=== PATIENT | male | born 1980 | race Caucasian/White ===

== ENCOUNTER → 2019-12-15 08:16 | Outpatient (BNVA) | payer OTHER, SELFPAY | PROVIDERS: PCP Nurse Practitioner Family; Referring Provider Nurse Practitioner Family; Visit Provider Nurse Practitioner Family | DX: Z76.89 Persons encountering health services in other specified circumstances (principal) ==

== ENCOUNTER → 2020-02-23 08:25 | Outpatient (BNVA) | payer OTHER, SELFPAY | PROVIDERS: PCP Nurse Practitioner Family; Visit Provider Nurse Practitioner Family | DX: Z76.89 Persons encountering health services in other specified circumstances (principal) ==

== ENCOUNTER → 2020-05-17 08:33 | Outpatient (BNVA) | payer OTHER, SELFPAY | PROVIDERS: PCP Nurse Practitioner Family; Visit Provider Nurse Practitioner Family ==

== ENCOUNTER 2020-11-30 12:18 | Outpatient (REF) | payer OTHER, SELFPAY ==
[2020-11-30 14:03] LABS: Appearance Urine HAZY; Color Urine YELLOW; Glucose Urine UA NEG (NEG); Leukocyte Esterase Urine NEG (NEG); Nitrite Urine NEG (NEG); Specific Gravity - Urine >= 1.030 (1.005-1.025); Urine Blood NEG (NEG); Urine Ketones NEG (NEG); Urine Protein NEG (NEG-TRACE)
[2020-11-30 14:32] LABS: Alanine Aminotransferase 32 U/L (0-40); Albumin Level 4.9 g/dL (3.5-5.0); Alkaline Phosphatase 78 U/L (39-117); Anion Gap 14 (12-20); Aspartate Amino Transferase 21 U/L (5-37); Bilirubin Total 0.5 mg/dL (0.0-1.0); Blood Urea Nitrogen 16 mg/dL (9-16); Calcium 10.3 mg/dL (8.4-10.2); Carbon Dioxide 26 mmol/L (22-29); Chloride 105 mmol/L (96-108); Cholesterol 222 mg/dL; Estimated Glomerular Filt Rate > 60; Glucose Fasting 102 mg/dL (60-99); HDL Cholesterol 51 mg/dL; LDL Cholesterol Calculated 112 mg/dl; Potassium 4.7 mmol/L (3.3-5.1); Sodium 140 mmol/L (135-145); Total Protein 7.9 g/dL (6.5-8.0); Triglycerides 296 mg/dL
[2020-11-30 14:45] LABS: TSH reflex Free T4 1.96 uIU/mL (0.32-4.0)
== END 2020-11-30 12:19 | disposition home or self-care (01) ==
LOC: HO.HMGCLDS 12:18
PROVIDERS: PCP Nurse Practitioner Family; Visit Provider Nurse Practitioner Family
DX: Z00.00 Encounter for general adult medical examination without abnormal findings (principal)
CPT/HCPCS: 36415; 80053; 80061; 81003; 84443

== ENCOUNTER 2021-12-04 11:54 | Outpatient (REF) | payer OTHER, SELFPAY ==
[2021-12-04 14:05] LABS: Appearance Urine Clear; Color Urine Yellow; Glucose Urine UA Negative (Negative); Leukocyte Esterase Urine Negative (Negative); Nitrite Urine Negative (Negative); Urine Blood Negative (Negative); Urine Ketones Negative (Negative); Urine Protein Negative (Neg-Trace)
[2021-12-04 14:07] LABS: MANUAL DIFF FLAG NO
[2021-12-04 14:17] LABS: Basophils Percent Auto 0.4 % (0-2); Eosinophils Absolute Auto 0.2 X10*3/uL (0.0-0.4); Eosinophils Percent Auto 3.3 % (0-4); Hematocrit 43.1 % (42.0-52.0); Hemoglobin 14.1 g/dl (14.0-18.0); Imm Gran Abs Auto 0.01 X10*3/uL (0.00-0.03); Imm Gran Pct Auto 0.2 % (0.0-0.4); Lymphocytes Absolute Auto 1.6 X10*3/uL (1.2-4.9); Mean Corpuscular HGB Conc 32.7 g/dl (31.0-36.0); Mean Corpuscular Hemoglobin 28.3 pg (27.0-33.0); Mean Corpuscular Volume 86.5 fL (80.0-98.0); Mean Platelet Volume 10.7 fL (9.4-12.4); Monocytes Absolute Auto 0.4 X10*3/uL (0.1-1.2); Neutrophils Absolute Auto 3.2 x10*3/uL (2.0-8.3); Neutrophils Percent Auto 59.1 % (45-73); Platelet Count 267 X10*3/uL (160-400); Red Blood Count 4.98 X10*6/uL (4.60-5.80); Red Cell Distribution Width 12.6 % (11.0-16.0); White Blood Count 5.5 X10*3/uL (4.8-10.8)
[2021-12-04 14:49] LABS: Alanine Aminotransferase 29 U/L (0-40); Albumin Level 4.8 g/dL (3.5-5.0); Alkaline Phosphatase 73 U/L (39-117); Anion Gap 16 (12-20); Aspartate Amino Transferase 19 U/L (5-37); Bilirubin Total 0.5 mg/dL (0.0-1.0); Blood Urea Nitrogen 19 mg/dL (9-16); Carbon Dioxide 25 mmol/L (22-29); Chloride 106 mmol/L (96-108); Cholesterol 174 mg/dL; Estimated Glomerular Filt Rate > 60; Glucose Fasting 99 mg/dL (60-99); HDL Cholesterol 39 mg/dL; LDL Cholesterol Calculated 90 mg/dl; Potassium 4.5 mmol/L (3.3-5.1); Sodium 142 mmol/L (135-145); Total Protein 7.4 g/dL (6.5-8.0); Triglycerides 228 mg/dL
[2021-12-04 14:57] LABS: TSH reflex Free T4 1.18 uIU/mL (0.32-4.0)
== END 2021-12-04 11:55 | disposition home or self-care (01) ==
LOC: HO.HMGCLDS 11:54
PROVIDERS: PCP Nurse Practitioner Family; Visit Provider Nurse Practitioner Family
DX: Z00.00 Encounter for general adult medical examination without abnormal findings (principal); Z13.220 Encounter for screening for lipoid disorders; Z13.29 Encounter for screening for other suspected endocrine disorder
CPT/HCPCS: 36415; 80053; 80061; 81003; 84443; 85025

== ENCOUNTER 2022-10-09 09:11 | Outpatient (AMB) | payer OTHER, SELFPAY ==
--- NOTE | 2022-10-09 09:22 | MHC.OFFWIV ---
Intake Vital Signs 10/09/22 09:25 BP 130/90 H Blood Pressure Location Rt brachial Position Sitting Pulse 95 Pulse Source Pulse Oximeter Pulse Oximetry (%) 97 Oxygen Delivery Method Room Air Intake Visit Reasons: EP chemical burn on left arm (lobby) Intake Note: Patient here because he got some draino on his skin this morning and developed a rash so he took a shower and the redness went away but he still has some tender spots where it was and he states it burned some his arm hair off. Patient Tobacco Use Status: Never used Tobacco Allergies No Known Allergies Allergy (Verified 10/09/22 09:25) Do you need a note to return to daycare/school/sports/work: Yes HPI HPI Comments History of Present Illness Details 42-year-old male presents for chemical burn to his left arm. States that he put some cleaner and presser down a drain, when he went to snake it some of the water splashed back onto his arm causing a reddened area that has now resolved. [facility] Social History Household Members: Spouse Housing: House Patient Tobacco Use Status: Never used Tobacco e-Cigarette/Vaping Use: Never Used service: No Current occupational status: employed Current occupation: [employer] Current occupational exposures/hazards: No Cognitive needs: No Hearing needs: No Vision needs: No Review of Systems Const Details: Constitutional: No Fever, No Chills Cardiovascular: No Chest Pain, No SOB Respiratory: No Cough, No Dyspnea Gastrointestinal: No Nausea, No Vomiting, No Diarrhea, No abdominal Pain Genitourinary: No Dysuria, No Hematuria Musculoskeletal: No joint pain, No Myalgias, No Joint Swelling Skin: Chemical burn to left arm, No Skin lacerations, No rash Neuro: No Weakness, No Numbness, No Paresthesias, No Dizziness, No Headache All systems reviewed & are unremarkable except as noted in HPI and below Physical Exam Vital Signs: Last Vital Signs Pulse 95 10/09/22 09:25 BP 130/90 H 10/09/22 09:25 Pulse Ox 97 10/09/22 09:25 Oxygen Delivery Method Room Air 10/09/22 09:25 Appearance: Alert. Oriented X3. No acute distress. Eyes: Pupils equal, round and reactive to light. Neck: Normal inspection. Neck supple. CVS: Normal heart rate and rhythm. Pulses normal. Respiratory: No respiratory distress. Breath sounds normal. Skin: Skin warm and dry. Normal skin color. Normal skin turgor. No erythema or open areas to the left arm. Extremities: No lower extremity edema. Gait well balanced well coordinated. Neuro: No motor deficit. No sensory deficit. Cranial nerves 2-12 intact. Assessment & Plan Assessment & Plan (1) Chemical burn: Code(s): T30.4 - Corrosion of unspecified body region, unspecified degree Plan: 42-year-old male presents for a chemical burn to the left forearm. He was snaking a drain that had draino in it, the water splashed back on him, and got onto his left arm. He did have an area of redness to the site, and the hair on his arm dissolved. There there are no open areas to the burn site, and the redness had dissipated after a shower. There is no indication of reaction at those sites with the exception of the missing hair. Patient has full range of motion and brisk capillary refill. Does not report any other burn sites. I do not feel that this burn requires any topical ointment, I feel that this patient should flush his arm a few more times today and leave it as is. If patient were to develop open areas, I suggest he return for evaluation. Patient verbalized understanding of and agrees to plan of care discharge home. Verbalized understanding of signs symptoms indicating need for emergent intervention. Patient Instructions: You were evaluated for chemical burn to her left arm. Your skin is not open. Please do not apply any ointment or topical lotions to the area. Continue to wash the arm with cool water, 15 minutes of flushing, a few more times today. Follow-up with primary care provider as needed. Return to the emergency department for any new, concerning, worsening symptoms. Coding Level of Care Code Est Pt Level 3 (95170) Diagnoses Chemical burn T30.4
[2022-10-09 09:25] VITALS: BP 130/90; PULSE 95; O2SAT 97
== END 2022-10-09 10:32 | disposition home or self-care (01) ==
PROVIDERS: PCP Nurse Practitioner Family; Visit Provider Nurse Practitioner Family
DX: T30.4 Corrosion of unspecified body region, unspecified degree (principal)
CPT/HCPCS: 99213

== ENCOUNTER 2022-12-05 10:21 | Outpatient (AMB) | payer OTHER, SELFPAY ==
[2022-12-05 10:27] VITALS: BP 110/74; PULSE 69; O2SAT 98; BMI 30.8
--- NOTE | 2022-12-05 10:27 | A.OFFPC_ITS ---
Vital Signs 12/05/22 10:27 Height 6 ft 0.5 in Weight 230 lb 2 oz BMI 30.8 BP 110/74 Blood Pressure Location Rt brachial Position Sitting Pulse 69 Pulse Source Pulse Oximeter Pulse Oximetry (%) 98 Oxygen Delivery Method Room Air Intake Visit Reasons: Annual PE Allergies No Known Allergies Allergy (Verified 12/05/22 10:29) Medication List - Last Reconciled 12/05/22 by JACKIE Sloan CPAP 5-20 rosuvastatin 30 mg (1.5 x 20 mg) PO DAILY 90 days Tobacco use date assessed: 12/05/22 Dental Screening Dental Screen Date: 12/05/22 Did you have a dental visit in the last 12 months?: Yes Did you have a dental problem in the last 6 months where you did not have access to dental care?: No Was dental information given to patient?: Patient has dentist HPI Annual PE HPI Details here for a PE. Offers no questions or concerns. [facility] Social History Household Members: Spouse Housing: House Patient Tobacco Use Status: Never used Tobacco e-Cigarette/Vaping Use: Never Used service: No Current occupational status: employed Current occupation: [employer] Current occupational exposures/hazards: No Cognitive needs: No Hearing needs: No Vision needs: No Questionnaire Thrive Questionnaire Date Thrive assessed: 12/04/21 LINDSEY-7 AMB Questionnaire LINDSEY-7 Date LINDSEY - 7 assessed: 12/04/21 Source: Developed by Drs. Maxwell Groves, Ramya Lemons, Norberto Hidalgo and colleagues, with an educational lesvia from [email or web address]. Review of Systems Const Denies chills and Denies fever(s) Eyes Denies blurry vision ENT Denies vertigo, Denies dizziness and Denies sore throat Card Denies chest pain at rest, Denies chest pain with activity, Denies diaphoresis, Denies dyspnea and Denies dyspnea on exertion Resp Denies cough, Denies dyspnea, Denies dyspnea on exertion and Denies wheezing GI Denies abdominal pain, Denies melena, Denies hematochezia, Denies constipation, Denies diarrhea and Denies loose stools Denies hematuria Musc Denies numbness and Denies tingling Skin/Breast Denies lesions Neuro Denies vertigo, Denies dizziness, Denies numbness and Denies tingling Psych Denies anxiety, Denies depression, Denies homicidal ideation, Denies suicidal ideation and Denies other (substance abuse) Aller/Immun Denies wheezing Physical exam (Primary Care) Vital Signs: Last Vital Signs Pulse 69 12/05/22 10:27 BP 110/74 12/05/22 10:27 Pulse Ox 98 12/05/22 10:27 Oxygen Delivery Method Room Air 12/05/22 10:27 BMI result Body Mass Index 30.8 Tobacco/Smoking Status: Tobacco use Status Tobacco use date assessed 12/05/22 12/05/22 10:32 Patient Tobacco Use Status Never used Tobacco 12/05/22 10:32 e-Cigarette/Vaping Use Never Used 12/05/22 10:32 Thrive Assessment: Date of Thrive Assessment Date Thrive assessed 12/04/21 12/05/22 10:32 Const General: cooperative Nutritional Appearance: well nourished Orientation/consciousness: patient oriented x3 HENMT Head: Yes normal to inspection, Yes normocephalic and Yes atraumatic Ears: TM normal on the right and TM normal on the left Eyes General: appearance normal, both eyes and all related structures Alignment and Position: alignment normal and position normal Neck Neck: Yes normal visual inspection and Yes no lymphadenopathy Resp Effort & Inspection: normal respiratory effort Auscultation: clear to auscultation bilaterally Cardio Rate: regular rate Rhythm: regular rhythm Heart sounds: S1 normal heart sound present, S2 normal heart sound present and no murmurs GI Palpation (GI): Soft to palpation and nontender Auscultation: normal bowel sounds Male General Exam: Yes normal external exam Penis: normal penis Scrotum: scrotum normal, testes descended bilaterally and no inguinal hernias Testes: no testicular mass Skin Rashes: no rashes Neuro General: patient oriented x3, moves all extremities, no focal motor deficits and deep tendon reflexes 2+ bilaterally Romberg Test: Negative Extrem Right lower extremity: no edema Left lower extremity: no edema Psych Affect: normal affect Attitude: cooperative Thought process: Normal thought process present Assessment and Plan Assessment & Plan (1) Physical exam: Code(s): Z00.00 - Encounter for general adult medical examination without abnormal findings Orders: Orders Complete Blood Count Auto Diff Today Z00.00 - Encounter for general adult medical examination without abnormal findings TSH reflex Free T4 Today Z00.00 - Encounter for general adult medical examination without abnormal findings UA CC w/rflx Micro + Cult Today Z00.00 - Encounter for general adult medical examination without abnormal findings Comprehensive [place]. Panel Fast Today Z00.00 - Encounter for general adult medical examination without abnormal findings Lipid Panel Today Z00.00 - Encounter for general adult medical examination without abnormal findings Coding Level of Care Code Est Pt Prev Care 40-64y(65134) Diagnoses Physical exam Z00.00
== END 2022-12-05 11:02 | disposition home or self-care (01) ==
PROVIDERS: Visit Provider Nurse Practitioner Family
DX: Z00.00 Encounter for general adult medical examination without abnormal findings (principal)
CPT/HCPCS: 99396

== ENCOUNTER 2022-12-05 11:05 | Outpatient (REF) | payer OTHER, SELFPAY ==
[2022-12-05 13:13] LABS: MANUAL DIFF FLAG NO
[2022-12-05 13:30] LABS: Basophils Percent Auto 0.2 % (0-2); Eosinophils Absolute Auto 0.1 X10*3/uL (0.0-0.4); Hematocrit 45.9 % (42.0-52.0); Imm Gran Abs Auto 0.01 X10*3/uL (0.00-0.03); Imm Gran Pct Auto 0.2 % (0.0-0.4); Lymphocytes Absolute Auto 1.8 X10*3/uL (1.2-4.9); Lymphocytes Percent Auto 31.6 % (20-40); Mean Corpuscular HGB Conc 32.7 g/dl (31.0-36.0); Mean Corpuscular Hemoglobin 28.4 pg (27.0-33.0); Mean Corpuscular Volume 86.9 fL (80.0-98.0); Mean Platelet Volume 10.9 fL (9.4-12.4); Monocytes Absolute Auto 0.3 X10*3/uL (0.1-1.2); Neutrophils Absolute Auto 3.3 x10*3/uL (2.0-8.3); Platelet Count 263 X10*3/uL (160-400); Red Blood Count 5.28 X10*6/uL (4.60-5.80); Red Cell Distribution Width 12.5 % (11.0-16.0); White Blood Count 5.5 X10*3/uL (4.8-10.8)
[2022-12-05 13:55] LABS: Appearance Urine Turbid; Color Urine Dark Yellow; Glucose Urine UA Negative (Negative); Leukocyte Esterase Urine Negative (Negative); Nitrite Urine Negative (Negative); PH 5.5 (5.0-9.0); Specific Gravity - Urine >= 1.030 (1.005-1.025); Urine Blood Negative (Negative); Urine Ketones Negative (Negative); Urine Protein Negative (Neg-Trace)
[2022-12-05 14:11] LABS: Alanine Aminotransferase 30 U/L (0-40); Albumin Level 4.9 g/dL (3.5-5.0); Alkaline Phosphatase 72 U/L (39-117); Anion Gap 15 (12-20); Aspartate Amino Transferase 22 U/L (5-37); Bilirubin Total 0.6 mg/dL (0.0-1.0); Blood Urea Nitrogen 20 mg/dL (9-16); Carbon Dioxide 23 mmol/L (22-29); Chloride 106 mmol/L (96-108); Cholesterol 222 mg/dL (<200); Estimated Glomerular Filt Rate > 60; Glucose Fasting 106 mg/dL (60-99); HDL Cholesterol 48 mg/dL (>40); LDL Cholesterol Calculated 126 mg/dL (<100); Potassium 4.3 mmol/L (3.3-5.1); Sodium 140 mmol/L (135-145); TSH reflex Free T4 1.68 uIU/mL (0.32-4.0); Triglycerides 244 mg/dL (<150)
== END 2022-12-05 11:06 | disposition home or self-care (01) ==
LOC: HO.CHCLDS 11:05
PROVIDERS: Visit Provider Nurse Practitioner Family
DX: Z00.00 Encounter for general adult medical examination without abnormal findings (principal); E78.5 Hyperlipidemia, unspecified; Z13.29 Encounter for screening for other suspected endocrine disorder; Z13.0 Encounter for screening for diseases of the blood and blood-forming organs and certain disorders involving the immune mechanism
CPT/HCPCS: 36415; 80053; 80061; 81003; 84443; 85025

== ENCOUNTER 2023-12-09 08:52 | Outpatient (AMB) | payer OTHER, SELFPAY ==
--- NOTE | 2023-12-09 08:53 | MHC.PC.OV ---
Vital Signs 12/09/23 08:55 Height 6 ft 0.5 in Weight 232 lb 4 oz BMI 31.1 BP 112/80 Blood Pressure Location Lt brachial Position Sitting Pulse 87 Pulse Source Pulse Oximeter Pulse Oximetry (%) 95 Oxygen Delivery Method Room Air Intake Visit Reasons: PE Intake Note: pt is here for annual exam [employer] Required: No Accompanied by: Self / Same As Patient Allergies No Known Allergies Allergy (Verified 12/09/23 08:54) Medication List - Last Reconciled 12/09/23 by JACKIE Sloan CPAP 5-20 rosuvastatin 40 mg PO DAILY 90 days Tobacco use date assessed: 12/09/23 Dental Screening Dental Screen Date: 12/09/23 Did you have a dental visit in the last 12 months?: Yes Did you have a dental problem in the last 6 months where you did not have access to dental care?: No Was dental information given to patient?: Patient has dentist HPI PE HPI Details Pt is here for a PE. Will order labs. Pt reports right hand and wrist pain after punching a wall and hitting a stud 1.5 weeks ago. He does have some swelling to the area (mostly dorsal right hand, mcp joints). Will order XRs. Pt reports he was frustrated at the time, no longer, denies any si or hi PFSH Social History Household Members: Spouse Housing: House Patient Tobacco Use Status: Never used Tobacco e-Cigarette/Vaping Use: Never Used service: No Current occupational status: employed Current occupation: [employer] Current occupational exposures/hazards: No Cognitive needs: No Hearing needs: No Vision needs: No Questionnaire PHQ-9 Over the last 2 weeks, how often have you been bothered by any of the following problems? 1. Little interest or pleasure in doing things: not at all 2. Feeling down, depressed, or hopeless: not at all 3. Trouble falling or staying asleep, or sleeping too much: not at all 4. Feeling tired or having little energy: not at all 5. Poor appetite or overeating: not at all 6. Feeling bad about yourself - or that you are a failure or have let yourself or your family down: not at all 7. Trouble concentrating on things, such as reading the newspaper or watching television: not at all 8. Moving or speaking so slowly that other people could have noticed. Or the opposite - being so fidgety or restless that you have been moving around a lot more than usual: not at all 9. Thoughts that you would be better off or of hurting yourself in some way: not at all Total score: 0 Depression Screening Interpretation: Negative Depression Screening Done: Yes 19081 - PHQ-9 Billing: Yes Source: Developed by Drs. Maxwell Groves, Ramya Lemons, Norberto Hidalgo and colleagues, with an educational lesvia from [employer] Thrive Questionnaire Date Thrive assessed: 12/09/23 I am a: Patient What is your living situation today?: I have a steady place to live Within the past 12 months, did the food you bought not last and you didn't have the money to get more?: Never true Within the past 12 months, did you worry whether your food would run out before you got money to buy more?: Never true Do you have trouble paying for medicines?: No Do you have trouble getting transportation to medical appointments?: No Do you have trouble paying your heating and electricity bill?: No Do you have trouble taking care of your child, family member or friend?: No Do you have trouble with day-to-day activities such as bathing, preparing meals, shopping, managing finances, etc.?: No Are you interested in more education?: No Please select the resources that you would like help with: None Currently or been in a relationship where the following occur: No concerns reported THRIVE Score: 0 AUDIT C Alcohol Use Questionnaire (AUDIT-C) 1. How often do you have a drink containing alcohol?: 2-3 times a week 2. How many drinks containing alcohol do you have on a typical day when you are drinking?: 1 or 2 3. How often do you have six or more drinks on one occasion?: Less than monthly Total Score: 4 Score Reviewed/Action Taken: Yes LINDSEY-7 AMB Questionnaire LINDSEY-7 Date LINDSEY - 7 assessed: 12/09/23 Feeling nervous, anxious, or on edge: 0 = Not at all Not being able to stop or control worryin = Not at all Worrying too much about different things: 0 = Not at all Trouble relaxin = Not at all Being so restless that it is hard to sit still: 0 = Not at all Becoming easily annoyed or irritable: 0 = Not at all Feeling afraid as if something awful might happen: 0 = Not at all Total LINDSEY-7 score (0-4 normal; 5-9 mild; 10-14 moderate; 15-21 severe): 0 Source: Developed by Drs. Maxwell Groves, Ramya Lemons, Norberto Hidalgo and colleagues, with an educational lesvia from [employer] LINDSEY-7 Assessment Billing LINDSEY-7 Assessment Tool: LINDSEY-7 Assessment 45313 Review of Systems Const Denies chills and Denies fever(s) Eyes Denies blurry vision ENT Denies vertigo, Denies dizziness and Denies sore throat Card Denies chest pain at rest, Denies chest pain with activity, Denies diaphoresis, Denies dyspnea and Denies dyspnea on exertion Resp Denies cough, Denies dyspnea, Denies dyspnea on exertion and Denies wheezing GI Denies abdominal pain, Denies melena, Denies hematochezia, Denies constipation, Denies diarrhea and Denies loose stools Denies hematuria Musc Denies numbness and Denies tingling Skin/Breast Denies lesions Neuro Denies vertigo, Denies dizziness, Denies numbness and Denies tingling Psych Denies anxiety, Denies depression, Denies homicidal ideation, Denies suicidal ideation and Denies other (substance abuse) Aller/Immun Denies wheezing Physical exam (Primary Care) Vital Signs: Last Vital Signs Pulse 87 12/09/23 08:55 BP 112/80 12/09/23 08:55 Pulse Ox 95 12/09/23 08:55 Oxygen Delivery Method Room Air 12/09/23 08:55 BMI result Body Mass Index 31.1 Tobacco/Smoking Status: Tobacco use Status Tobacco use date assessed 12/09/23 12/09/23 08:55 Patient Tobacco Use Status Never used Tobacco 12/09/23 08:53 e-Cigarette/Vaping Use Never Used 12/09/23 08:53 PHQ-9: PHQ-9 Score PHQ-9: Total score 0 12/09/23 09:11 Depression Screening Interpretation: Negative Thrive Assessment: Date of Thrive Assessment Date Thrive assessed 12/09/23 12/09/23 08:55 Currently or been in a relationship where the following occur: No concerns reported Const General: cooperative Nutritional Appearance: well nourished Orientation/consciousness: patient oriented x3 HENMT Head: Yes normal to inspection, Yes normocephalic and Yes atraumatic Ears: TM's normal bilaterally Eyes General: appearance normal, both eyes and all related structures Alignment and Position: alignment normal and position normal Neck Neck: Yes normal visual inspection, Yes no lymphadenopathy and Yes supple Resp Effort & Inspection: normal respiratory effort Auscultation: clear to auscultation bilaterally Cardio Rate: regular rate Rhythm: regular rhythm Heart sounds: S1 normal heart sound present, S2 normal heart sound present and no murmurs GI Palpation (GI): Soft to palpation and nontender Auscultation: normal bowel sounds Male General Exam: Yes normal external exam Penis: normal penis Scrotum: scrotum normal, testes descended bilaterally and no inguinal hernias Testes: no testicular mass Skin Rashes: no rashes Neuro General: patient oriented x3, moves all extremities, no focal motor deficits and deep tendon reflexes 2+ bilaterally Romberg Test: Negative Extrem Other: swelling to dorsal aspect of right hand, abrasion around 2nd and 3rd MCP joints, able to make a complete fist Psych Appearance: grossly normal Mental Status: mental status grossly normal Speech and movement: Normal speech and movement present Affect: normal affect Attitude: cooperative Thought process: Normal thought process present Thought content: Normal thought content present Insight: Good insight present (Psych) Judgement: Good judgement present (Psych) Coding Level of Care Code Est Pt Prev Care 40-64y(15595) Diagnoses Physical exam Z00.00 Right wrist injury S69.91XA Right hand pain M79.641 Additional Codes LINDSEY-7 Assessment Billing - LINDSEY-7 Assessment Tool: LINDSEY-7 Assessment 76731 ([id number]) Assessment & Plan Assessment & Plan (1) Physical exam: Code(s): Z00.00 - Encounter for general adult medical examination without abnormal findings Category: Medical (2) Right wrist injury: Code(s): S69.91XA - Unspecified injury of right wrist, hand and finger(s), initial encounter Category: Medical Plan: XR wrist (3) Right hand pain: Code(s): M79.641 - Pain in right hand Category: Medical Plan: XR hand ordered Plan The patient agreed to the use of a medical planner for this encounter. Scribed for [facility] by Neela Perdue medical planner, on 12/09/2023 at 09:10 EST. Orders: Orders XR hand RT 2V Today M79.641 - Pain in right hand Comprehensive [place]. Panel Fast Today M79.641 - Pain in right hand, Z00.00 - Encounter for general adult medical examination without abnormal findings Complete Blood Count Auto Diff Today M79.641 - Pain in right hand, Z00.00 - Encounter for general adult medical examination without abnormal findings TSH reflex Free T4 Today M79.641 - Pain in right hand, Z00.00 - Encounter for general adult medical examination without abnormal findings UA CC w/rflx Micro + Cult Today M79.641 - Pain in right hand, Z00.00 - Encounter for general adult medical examination without abnormal findings Lipid Panel Today M79.641 - Pain in right hand, Z00.00 - Encounter for general adult medical examination without abnormal findings XR wrist RT 2V Today S69.91XA - Unspecified injury of right wrist, hand and finger(s), initial encounter
[2023-12-09 08:55] VITALS: BP 112/80; PULSE 87; O2SAT 95; BMI 31.1
== END 2023-12-09 09:20 | disposition home or self-care (01) ==
PROVIDERS: PCP Nurse Practitioner Family; Visit Provider Nurse Practitioner Family
DX: Z00.00 Encounter for general adult medical examination without abnormal findings (principal); S69.91XA Unspecified injury of right wrist, hand and finger(s), initial encounter; M79.641 Pain in right hand

== ENCOUNTER → 2023-12-09 08:52 | Outpatient (BNVA) | payer OTHER, SELFPAY | PROVIDERS: PCP Nurse Practitioner Family; Visit Provider Nurse Practitioner Family | DX: Z00.01 Encounter for general adult medical examination with abnormal findings (principal); S69.91XA Unspecified injury of right wrist, hand and finger(s), initial encounter; M79.641 Pain in right hand; W22.09XA Striking against other stationary object, initial encounter; Y93.9 Activity, unspecified; Y92.9 Unspecified place or not applicable; Y99.9 Unspecified external cause status | CPT/HCPCS: 96127 ==

== ENCOUNTER 2023-12-09 09:20 | Outpatient (REF) | payer OTHER, SELFPAY ==
--- NOTE | ~2023-12-09 | XR_ITS ---
EXAMINATION: XR HAND/WRIST, RIGHT CLINICAL INFORMATION: Pain in right hand. COMPARISON: None available. TECHNIQUE: PA, lateral, and oblique views of the right hand and wrist. FINDINGS: The bone mineralization is normal. Joint spaces are preserved. There is mild focal irregularity along the ulnar aspect of the base of the fifth metacarpal, partially obscured by overlying bony structures, possibly representing prior trauma. XR/XR hand wrist RT IMPRESSION: Mild focal irregularity along the ulnar aspect of the base of the fifth metacarpal, partially obscured by overlying bony structures, possibly representing prior trauma. Correlation with clinical exam recommended. This study was presented today, December 09, 2023, for interpretation. Stat results provided at this time as requested by referring provider. Electronically signed by: Toyin Chris MD 12/09/2023 10:34 AM EDT
[2023-12-09 10:04] LABS: MANUAL DIFF FLAG NO
[2023-12-09 10:10] LABS: Basophils Percent Auto 0.4 % (0-2); Eosinophils Absolute Auto 0.1 X10*3/uL (0.0-0.4); Eosinophils Percent Auto 2.1 % (0-4); Hematocrit 42.9 % (42.0-52.0); Hemoglobin 14.5 g/dl (14.0-18.0); Imm Gran Abs Auto 0.01 X10*3/uL (0.00-0.03); Imm Gran Pct Auto 0.2 % (0.0-0.4); Lymphocytes Absolute Auto 1.5 X10*3/uL (1.2-4.9); Lymphocytes Percent Auto 27.8 % (20-40); Mean Corpuscular HGB Conc 33.8 g/dl (31.0-36.0); Mean Corpuscular Hemoglobin 28.8 pg (27.0-33.0); Mean Corpuscular Volume 85.1 fL (80.0-98.0); Mean Platelet Volume 10.6 fL (9.4-12.4); Monocytes Absolute Auto 0.3 X10*3/uL (0.1-1.2); Monocytes Percent Auto 4.9 % (2-11); Neutrophils Absolute Auto 3.4 x10*3/uL (2.0-8.3); Neutrophils Percent Auto 64.6 % (45-73); Platelet Count 232 X10*3/uL (160-400); Red Blood Count 5.04 X10*6/uL (4.60-5.80); Red Cell Distribution Width 12.7 % (11.0-16.0); White Blood Count 5.3 X10*3/uL (4.8-10.8)
[2023-12-09 10:28] LABS: Appearance Urine Clear; Color Urine Yellow; Glucose Urine UA Negative (Negative); Leukocyte Esterase Urine Trace (Negative); Nitrite Urine Negative (Negative); PH 5.5 (5.0-9.0); Specific Gravity - Urine 1.025 (1.005-1.025); UMIC TRIGGER UACC YES; Urine Blood Negative (Negative); Urine Ketones Negative (Negative); Urine Protein Negative (Neg-Trace)
[2023-12-09 10:37] LABS: Bacteria Urine None Seen (None Seen); Hyaline Casts Urine 0-2 /LPF (0-2); RBC Urine 0-2 /HPF (0-2); Squamous Epithelial Cell Urine 0-2 /HPF (0-2); WBC Urine 0-5 /HPF (0-5)
[2023-12-09 10:50] LABS: Alanine Aminotransferase 29 U/L (0-40); Albumin Level 4.7 g/dL (3.5-5.0); Alkaline Phosphatase 62 U/L (39-117); Anion Gap 13 (12-20); Aspartate Amino Transferase 22 U/L (5-37); Bilirubin Total 0.8 mg/dL (0.0-1.0); Blood Urea Nitrogen 22 mg/dL (9-16); Calcium 10.3 mg/dL (8.4-10.2); Carbon Dioxide 24 mmol/L (22-29); Chloride 108 mmol/L (96-108); Cholesterol 156 mg/dL (<200); Estimated Glomerular Filt Rate > 60; Glucose Fasting 113 mg/dL (60-99); HDL Cholesterol 42 mg/dL (>40); LDL Cholesterol Calculated 70 mg/dL (<100); Potassium 4.1 mmol/L (3.3-5.1); Sodium 141 mmol/L (135-145); Total Protein 7.4 g/dL (6.5-8.0); Triglycerides 221 mg/dL (<150)
[2023-12-09 11:06] LABS: TSH reflex Free T4 1.59 uIU/mL (0.32-4.0)
== END 2023-12-09 09:21 | disposition home or self-care (01) ==
LOC: HO.HMGCX 09:20
PROVIDERS: PCP Nurse Practitioner Family; Visit Provider Nurse Practitioner Family
DX: M79.641 Pain in right hand (principal); Z13.6 Encounter for screening for cardiovascular disorders; Z00.00 Encounter for general adult medical examination without abnormal findings
CPT/HCPCS: 36415; 73110; 73130; 80053; 80061; 81001; 84443; 85025

== ENCOUNTER 2025-01-11 09:02 | Outpatient (REF) | payer OTHER, SELFPAY ==
[2025-01-11 13:21] LABS: MANUAL DIFF FLAG NO
[2025-01-11 13:35] LABS: Hematocrit 42.6 % (42.0-52.0); Hemoglobin 14.0 g/dl (14.0-18.0); Imm Gran Abs Auto 0.01 X10*3/uL (0.00-0.03); Imm Gran Pct Auto 0.2 % (0.0-0.4); Lymphocytes Absolute Auto 1.7 X10*3/uL (1.2-4.9); Mean Corpuscular HGB Conc 32.9 g/dl (31.0-36.0); Mean Corpuscular Hemoglobin 28.5 pg (27.0-33.0); Mean Corpuscular Volume 86.8 fL (80.0-98.0); NRBC Abs Auto 0.000 X10*3/uL (0.0-0.012); NRBC Pct Auto 0.0 /100WBC (0.0-0.2); Platelet Count 285 X10*3/uL (160-400); Red Blood Count 4.91 X10*6/uL (4.60-5.80); White Blood Count 4.3 X10*3/uL (4.8-10.8)
[2025-01-11 14:00] LABS: Appearance Urine Turbid; Glucose Urine UA Negative (Negative); PH 6.0 (5.0-9.0); Specific Gravity - Urine >= 1.030 (1.005-1.025)
[2025-01-11 14:34] LABS: Alanine Aminotransferase 27 U/L (0-40); Albumin Level 5.0 g/dL (3.5-5.0); Alkaline Phosphatase 71 U/L (39-117); Anion Gap 13 (12-20); Aspartate Amino Transferase 31 U/L (5-37); Blood Urea Nitrogen 26 mg/dL (9-16); Calcium 10.0 mg/dL (8.4-10.2); Carbon Dioxide 23 mmol/L (22-29); Chloride 109 mmol/L (96-108); Cholesterol 281 mg/dL (<200); Estimated Glomerular Filt Rate > 60; HDL Cholesterol 43 mg/dL (>40); Potassium 4.3 mmol/L (3.3-5.1); Sodium 141 mmol/L (135-145); Total Protein 7.7 g/dL (6.5-8.0); Triglycerides 255 mg/dL (<150)
== END 2025-01-11 09:03 | disposition home or self-care (01) ==
LOC: HO.HMGCLDS 09:02
PROVIDERS: PCP Nurse Practitioner Family; Visit Provider Nurse Practitioner Family
DX: Z00.00 Encounter for general adult medical examination without abnormal findings (principal); E78.5 Hyperlipidemia, unspecified
CPT/HCPCS: 36415; 80053; 80061; 81003; 84443; 85025; 90471; 90656

== ENCOUNTER 2025-01-11 09:02 | Outpatient (AMB) | payer OTHER, SELFPAY ==
--- NOTE | 2025-01-11 09:19 | MHC.PC.OV ---
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: No Accompanied by: Self / Same As Patient Allergies No Known Allergies Allergy (Verified 12/09/23 08:54) Medication List - Last Reconciled 01/11/25 by JACKIE Sloan CPAP 5-20 fenofibrate 54 mg PO DAILY 90 days Tobacco use date assessed: 01/11/25 Dental Screening Dental Screen Date: 01/11/25 Did you have a dental visit in the last 12 months?: Yes Did you have a dental problem in the last 6 months where you did not have access to dental care?: No Was dental information given to patient?: Patient has dentist HPI PE HPI Details History of Present Illness The patient is a 44-year-old male presenting for a physical exam. He reports feeling well overall. Health Maintenance - Fasting labs will be obtained. Social History Review of Systems - General: Reports feeling well overall. - Cardiovascular: Denies chest pain. - Respiratory: Denies shortness of breath. - Gastrointestinal: Denies abdominal pain, constipation, or diarrhea. - Psychiatric: Denies suicidal or homicidal ideation. Physical Exam General: Cooperative, healthy appearing, comfortable, no acute distress and well developed Orientation: Patient oriented x3 Limitations: No limitations Head: Normal to inspection Ears: Hearing grossly normal bilaterally Nose: Normal external nose present Face and sinus: Normal facial exam Eyes: Appearance normal, both eyes and all related structures Neck: Normal visual inspection and Yes full ROM Respiratory: Normal respiratory effort and able to speak in complete sentences. Clear to auscultation bilaterally Cardiovascular: Regular rate and rhythm. Normal S1 and S2 GI: Normal to inspection. Soft to palpation and nontender : testicles without masses/lesions and no hernias appreciated Skin: several skin, birthmarks, moles present, but nothing with irregular shape or changes in color back mostly) Neuro: Patient oriented x3 Extremities: Normal to inspection Results Plan Discussion Notes I advised the patient that fasting labs would be drawn this morning. Patient Instructions - Please proceed to have your lab work done this morning. - Remember not to eat or drink anything before your tests, as you need to be fasting. [facility] Social History Household Members: Spouse Housing: House Patient Tobacco Use Status: Never used Tobacco e-Cigarette/Vaping Use: Never Used service: No Current occupational status: employed Current occupation: [employer] Current occupational exposures/hazards: No Cognitive needs: No Hearing needs: No Vision needs: No Questionnaire Thrive Questionnaire Date Thrive assessed: 01/04/25 I am a: Patient What is your living situation today?: I choose not to answer this question Within the past 12 months, did the food you bought not last and you didn't have the money to get more?: I choose not to answer this question Within the past 12 months, did you worry whether your food would run out before you got money to buy more?: I choose not to answer this question Do you have trouble paying for medicines?: I choose not to answer this question Do you have trouble getting transportation to medical appointments?: I choose not to answer this question Do you have trouble paying your heating and electricity bill?: I choose not to answer this question Do you have trouble taking care of your child, family member or friend?: I choose not to answer this question Do you have trouble with day-to-day activities such as bathing, preparing meals, shopping, managing finances, etc.?: I choose not to answer this question Are you currently unemployed and looking for a job?: I choose not to answer this question Are you interested in more education?: No Please select the resources that you would like help with: None Currently or been in a relationship where the following occur: No concerns reported THRIVE Score: 0 AUDIT C Alcohol Use Questionnaire (AUDIT-C) 1. How often do you have a drink containing alcohol?: 2-4 times a month 2. How many drinks containing alcohol do you have on a typical day when you are drinking?: 1 or 2 3. How often do you have six or more drinks on one occasion?: Never Total Score: 2 LINDSEY-7 AMB Questionnaire LINDSEY-7 Date LINDSEY - 7 assessed: 12/09/23 Feeling nervous, anxious, or on edge: 0 = Not at all Not being able to stop or control worryin = Not at all Worrying too much about different things: 0 = Not at all Trouble relaxin = Not at all Being so restless that it is hard to sit still: 0 = Not at all Becoming easily annoyed or irritable: 0 = Not at all Feeling afraid as if something awful might happen: 0 = Not at all Total LINDSEY-7 score (0-4 normal; 5-9 mild; 10-14 moderate; 15-21 severe): 0 Source: Developed by Drs. Maxwell Groves, Ramya Lemons, Norberto Hidalgo and colleagues, with an educational lesvia from [employer]. Physical exam (Primary Care) Vital Signs: Last Vital Signs Temp 98.4 F 01/11/25 09:20 Pulse 80 01/11/25 09:20 BP 110/62 01/11/25 09:20 Pulse Ox 96 01/11/25 09:20 Oxygen Delivery Method Room Air 01/11/25 09:20 BMI result Body Mass Index 31.2 Tobacco/Smoking Status: Tobacco use Status Tobacco use date assessed 01/11/25 01/11/25 09:25 Patient Tobacco Use Status Never used Tobacco 01/11/25 09:25 e-Cigarette/Vaping Use Never Used 01/11/25 09:25 Thrive Assessment: Date of Thrive Assessment Date Thrive assessed 01/04/25 01/11/25 09:25 Currently or been in a relationship where the following occur: No concerns reported Coding Level of Care Code Est Pt Prev Care 40-64y(15179) Diagnoses Physical exam Z00.00 Assessment & Plan Assessment & Plan (1) Physical exam: Code(s): Z00.00 - Encounter for general adult medical examination without abnormal findings Category: Medical Plan . Orders: Orders TSH reflex Free T4 Today Z00.00 - Encounter for general adult medical examination without abnormal findings Lipid Panel Today Z00.00 - Encounter for general adult medical examination without abnormal findings Complete Blood Count Auto Diff Today Z00.00 - Encounter for general adult medical examination without abnormal findings Comprehensive [place]. Panel Fast Today Z00.00 - Encounter for general adult medical examination without abnormal findings UA CC w/rflx Micro + Cult Today Z00.00 - Encounter for general adult medical examination without abnormal findings Influenza [id number] Immunization Today Z23 - Encounter for immunization Medications: New Fluarix [id number] (PF) (flu vac ts (6mos up)-PF) 0.5 mL IM ONCE 0.5 mL 0RF NS Z23 - Encounter for immunization
[2025-01-11 09:20] VITALS: BP 110/62; PULSE 80; TEMP 36.9; O2SAT 96; BMI 31.2
--- OUTSIDE RECORDS SUMMARY | 2025-01-11 09:39 | XMS_ITS | Clinical Summary ---
Author Organization [facility] Address [address] [place] [address] Care Team Providers Care Test Department Helper Name Role Phone Unavailable Primary Care Provider Unavailabl e Source Comments PLEASE NOTE, if this patient is a minor, it may be UNLAWFUL to discuss sensitive information that is contained in these records (such as FAMILY PLANNING, MENTAL HEALTH or SUBSTANCE ABUSE) with the minor patient's parent or other person without the patient's specific authorization.[facility] Immunizations Immunization Administration Dates Next Due Moderna COVID-19 Vaccine, re d cap blue label, 12+ Primary Series 07/21/2020,06/23/2020 Social History Tobacco Use Types Packs/Day Years Used Date Smoking Tobacco: Never Assessed Social Connections Answer Date Recorded Social Connections and Isolation 0 06/23/2020 Financial Resource Strain Answer Date R ecorded Financial Resource Strain 0 2020 Stress Answer Date Recorded Stress 0 06/23/2020 Physical Activity Answer Date Recorded Physical Activity 0 06/23/2020 Food Insecurity Answer Date Recorded Food 0 06/23/2020 Transportation Needs Answer Date Record ed Transportation 0 06/23/2020 Housing Stability Answer Date Recorded Housing 0 06/23/2020 Safety and Environment Answer Date Philip rded Safety 0 06/23/2020 Utilities Answer Date Recorded Utilities 0 06/23/2020 Employment Answer Date Recorded Employment 0 06/23/2020 Sex and Gender Information Value Date Recorded Sex Assigned at Not on file Legal Sex Male 8:32 AM PDT Gender Identity Not on file Sexual Orientation Not on file Plan of Treatment Health Maintenance Due Date Last Done Comments Anxiety Screening 1981 Diabetes Screening 1981 Hepatitis C Screening 1981 Lipid Screening 1981 Tobacco Screening 1981 HIV Screening 1996 Hypertension Screening (#1) 06/07/1999 Imm-DTaP/Tdap/Td (1 - Tdap) 2000 Imm-Hepatitis B (1 of 3 - 19 + 3-dose series) 2000 Imm-HPV (1 - 3-dose SCDM series) 2008 Alcohol and Drug Screen 03/04/2024 Depression Annual Screen 03/04/2024 [id number] ( - 2024- season) 2024 021, 06/23/2020 Imm-Influenza (#1) 2024 11/16/2019, 1 04/29/2018, 12/26/2015 Insurance [facility]
== END 2025-01-11 10:00 | disposition home or self-care (01) ==
LOC: HO.HMCC 09:03
PROVIDERS: PCP Nurse Practitioner Family; Visit Provider Nurse Practitioner Family
DX: Z00.00 Encounter for general adult medical examination without abnormal findings (principal); Z23 Encounter for immunization

== ENCOUNTER 2025-01-14 06:22 | Outpatient (AMB) | payer OTHER, SELFPAY ==
--- OUTSIDE RECORDS SUMMARY | 2025-01-14 06:25 | XMS_ITS | Clinical Summary ---
Author Organization [facility] Address [address] [place] [address] Care Team Providers Care Air Bag Curer Name Role Phone Unavailable Primary Care Provider [...] Drug Screen 03/04/2024 Depression Annual Screen 03/04/2024 [id number] ( - 2024- season) 2024 021, 06/23/2020 Imm-Influenza (#1) 2024 11/16/2019, 1 04/29/2018, 12/26/2015 Insurance [facility]
--- NOTE | 2025-01-14 07:58 | A.OFFPC_ITS ---
Intake Visit Reasons: Discuss lipids/treatment Allergies No Known Allergies Allergy (Verified 12/09/23 08:54) Tobacco use date assessed: 01/11/25 Dental Screening Dental Screen Date: 01/11/25 HPI Discuss lipids/treatment HPI Details History of Present Illness The patient is a 44-year-old male presenting for a telehealth follow-up for lab results. He has been on fenofibrate for about a year for his triglycerides but mistakenly discontinued his statin medication during this time. Recent labs showed an increase in his cholesterol and LDL levels. His fasting blood sugar is noted to be trending in the prediabetes range. He reported a prior episode of blurred vision, which resolved spontaneously. Review of Systems - Cardiovascular: Denies chest pain. - Respiratory: Denies dyspnea. - Gastrointestinal: Denies abdominal rosalina n. - Ophthalmologic: Reports a past episode of blurred vision that resolved spon taneously. Plan 1. Hyperlipidemia The patient's cholesterol and LDL levels have increased after he mistakenly stopped his statin medication a year ago. He will restart a statin at a 20 mg d ose and continue taking fenofibrate. A repeat lipid panel will be checked in two months to assess response and adjust medication as needed. 2. Prediabetes The patient's fasting blood sugar is trending into the prediabetic range. The importance of a proper diet was reinforced. 3. Blurred Vision The patient reported a prior, spontaneously resolved episode of blurred vision. He has been advised to see an eye doctor for any worsening symptoms and to provide myself with any future changes in vision. Discussion Notes I discussed with the patient that his cholesterol had increased due to mistakenly stopping his statin about a year ago. I explained the plan to restart the statin at 20 mg and recheck his lipid panel in two months to adjust as needed. I also reinforced the importance of diet, as his fasting blood sugar is trending into the prediabetic range. We discussed his past episode of blurred vision, and I advised him to consult an director trust for any worsening sympt oms and to keep me informed. Patient Instructions - You will restart your statin medicatio n at a dose of 20 mg. - Continue taking your fenofibrate as pr escribed. - Please follow a proper diet, as your f asting blood sugar is slightly elevated. - We will need to recheck your cholester ol with a blood test in two months. - If you have any worsening vision probl ems, please see an eye doctor and let me know. [facility] Social History Household Members: Spouse Housing: House Patient Tobacco Use Status: Never used Tobacco e-Cigarette/Vaping Use: Never Used service: No Current occupational status: employed Current occupation: [employer] Current occupational exposures/hazards: No Cognitive needs: No Hearing needs: No Vision needs: No Questionnaire Thrive Questionnaire Date Thrive assessed: 01/04/25 I am a: Patient What is your living situation today?: I choose not to answer this question Within the past 12 months, did the food you bought not last and you didn't have the money to get more?: I choose not to answer this question Within the past 12 months, did you worry whether your food would run out before you got money to buy more?: I choose not to answer this question Do you have trouble paying for medicines?: I choose not to answer this question Do you have trouble getting transportation to medical appointments?: I choose not to answer this question Do you have trouble paying your heating and electricity bill?: I choose not to answer this question Do you have trouble taking care of your child, family member or friend?: I choose not to answer this question Do you have trouble with day-to-day activities such as bathing, preparing meals, shopping, managing finances, etc.?: I choose not to answer this question Are you currently unemployed and looking for a job?: I choose not to answer this question Are you interested in more education?: No Please select the resources that you would like help with: None Currently or been in a relationship where the following occur: No concerns reported THRIVE Score: 0 LINDSEY-7 AMB Questionnaire LINDSEY-7 Date LINDSEY - 7 assessed: 12/09/23 Source: Developed by Drs. Maxwell Groves, Ramya Lemons, Norberto Hidalgo and colleagues, with an educational lesvia from [employer]. Physical exam (Primary Care) Tobacco/Smoking Status: Tobacco use Status Tobacco use date assessed 01/11/25 01/11/25 09:25 Patient Tobacco Use Status Never used Tobacco 01/11/25 09:25 e-Cigarette/Vaping Use Never Used 01/11/25 09:25 Thrive Assessment: Date of Thrive Assessment Date Thrive assessed 01/04/25 01/11/25 09:25 Currently or been in a relationship where the following occur: No concerns reported Telehealth Telehealth [facility] Location of provider rendering services: practice address Location of patient: address on file Patient Identification confirmed using: Name, : Yes Telehealth method: video Patient verbally consented to treatment: Yes Patient verbally consented to billing insurance company: Yes Patient informed of any privacy concerns related to visit: Yes Minutes spent on Phone/Video with Pt.: 10 Coding Level of Care Code Tele Est Pt Level 3 (75332) Diagnoses Dyslipidemia E78.5 Elevated fasting blood sugar R73.01 Assessment & Plan Assessment & Plan (1) Dyslipidemia: Code(s): E78.5 - Hyperlipidemia, unspecified Category: Medical (2) Elevated fasting blood sugar: Code(s): R73.01 - Impaired fasting glucose Category: Medical Plan . Medications: Changed From rosuvastatin 5 mg PO DAILY 90 days 90 tabs 1RF E78.5 - Hyperlipidemia, unspecified To rosuvastatin 20 mg PO DAILY 30 days 30 tabs 2RF E78.5 - Hyperlipidemia, unspecified Refilled rosuvastatin 20 mg PO DAILY 30 tabs 2RF 30 days E78.5 - Hyperlipidemia, unspecified
== END 2025-01-14 10:17 | disposition home or self-care (01) ==
LOC: HO.HMCC 06:23
PROVIDERS: PCP Nurse Practitioner Family; Visit Provider Nurse Practitioner Family
DX: E78.5 Hyperlipidemia, unspecified (principal); R73.01 Impaired fasting glucose